=== PATIENT | female | born 1965 | race Caucasian/White ===

== ENCOUNTER → 2021-09-26 | Day surgery (SDC) | payer OTHER ==
[~2021-09-26] MED LIST: MULTIVITAMINS1 EAC8 PO; ONE DAILY TABL1 EAC1 PO; OR PHACO EYE KIT ONE; PREOP PHACO EYE KIT ONE; VITAMIN D PO
[2021-09-26 14:15] VITALS: BP 127/69
== END | disposition home or self-care (01) ==
LOC: OR 11:26
PROVIDERS: ATTEND Ophthalmology
DX: H25.11 Age-related nuclear cataract, right eye (principal); Z20.822 Contact with and (suspected) exposure to COVID-19; F17.210 Nicotine dependence, cigarettes, uncomplicated
CPT/HCPCS: 66984; U0002